=== PATIENT | female | born 1990 | race Caucasian/White ===

== ENCOUNTER 2017-06-06 19:13 | Emergency (ER) | payer OTHER ==
[~2017-06-06 19:13] MED LIST: ISOVUE-370 76%-LOCM 1 ML ONE
[2017-06-06 19:57] LABS: #Eosinphils 0.1 thou/uL (0.0-0.7); #Lymphocytes 2.3 thou/uL (1.20-3.40); #Monocytes 0.6 thou/uL (0.11-0.59); #Neutrophils 6.2 thou/uL (1.40-6.50); %Basophils 0.4 % (0.0-1.0); %Eosinophils 1.4 % (0.0-10.0); %Monocytes 6.8 % (0.0-10.0); %Neutrophils 66.4 % (42.0-75.0); Hemoglobin 13.7 g/dL (12.0-16.0); Mean Corpuscular HGB CONC 34.4 g/dL (32.0-36.0); Mean Corpuscular Hemoglobin 32.5 pg (27.0-31.0); Mean Corpuscular Volume 94.4 fl (81.0-99.0); Mean Platelet Volume 7.8 fL (7.4-10.4); Platelet Count 286 thou/uL (130-400); Red Blood Cell (RBC) Count 4.21 mill/uL (4.20-5.40); White Blood Cell (WBC) Count 9.3 thou/uL (4.8-10.8)
[2017-06-06 20:24] LABS: ALT (SGPT) 22 U/L (8-55); AST (SGOT) 21 U/L (5-34); Albumin 4.5 g/dL (3.5-5.0); Alkaline Phosphatase 76 U/L (40-150); Anion Gap 13 mmol/L (10-20); BUN (Urea Nitrogen) 10 mg/dL (7.0-18.7); Bilirubin, Total 0.5 mg/dL (0.2-1.2); Calc. Creatinine Clearance 0 mL/min (70-130); Calcium 9.2 mg/dL (7.8-10.44); Carbon Dioxide 25 mmol/L (22-29); Chloride 104 mmol/L (98-107); Estimated GFR-MDRD 89; Globulin 2.7 g/dL (2.4-3.5); Glucose 100 mg/dL (70-105); Lipase 18 U/L (8-78); Protein, Total 7.2 g/dL (6.0-8.3); Sodium 138 mmol/L (136-145)
[2017-06-06 20:41] LABS: Bilirubin Negative (Negative); Blood, Urine Negative (Negative); Clarity CLEAR (Clear); Glucose, Urine (Dipstick) Negative (Negative); Leukocyte Negative (Negative); Nitrite Negative (Negative); Protein, Urine (Dipstick) Negative (Neg-Trace); Urobilinogen 0.2 mg/dL (0.2-1.0); pH, Urine 7.5 (5.0-9.0)
[2017-06-06 20:42] LABS: BHCG - Serum Negative (NEGATIVE); Pregs Control Background? CLEAR/WHITE (CLR/WHITE); Pregs Control Bar Appear? YES (CONTROL BAR)
--- NOTE | 2017-06-06 22:46 | CT ---
ABDOMEN CT WITH CONTRAST PELVIC CT WITH CONTRAST: Date: 06/06/17 HISTORY: Abdominal pain. Lower abdominal pain. Right lower quadrant pain. COMPARISON: None. TECHNIQUE: Abdomen and pelvis CT are performed with IV contrast. Coronal reformatted images are submitted for in terpretation. FINDINGS: ABDOMEN CT: Lung bases are clear. Heart size is normal. No significant pericardial fluid. Descending thoracic aor ta and abdominal aorta have normal caliber. No periaortic fat stranding. Intra and extrahepatic martha l vein is patent. Gallbladder is unremarkable. Symmetric attenuation of the psoas muscles. Liver, spleen, pancreas, and adrenal glands have appropri ate enhancement. No gastrohepatic, retrocrural, or periportal lymphadenopathy. No mesenteric mass, lymphadenopathy, free air, or free fluid. Symmetric enhancement of the kidneys. B ilaterally, no obstructive uropathy. Limited evaluation of the alimentary canal due to lack of oral contrast. Grossly unremarkable gastric mucosa, duodenum, and multiple normal caliber small bowel loops. Ileocecal junction is normal. Scatt ered fecal material in a nondistended, nondilated colon. Normal caliber appendix. PELVIC CT: Uterus and left adnexal structures are unremarkable. There is a follicle in the right ovary measuring 1.2 cm. Urinary bladder is unremarkable. No pelvic mass, lymphadenopathy, or free air. Trace amount of free fluid in the pelvis. There are no lytic or blastic lesions within the osseous structures. IMPRESSION: 1. Normal caliber appendix. 2. No evidence of bowel obstruction. 3. No evidence of obstructive uropathy. 4. Follicle in right ovary. POS: [facility]
[2017-06-07] MEDS ORDERED: Ketorolac Tromethamine 30 MG/ML VIAL ONE (01:29)
--- NOTE | 2017-06-07 07:19 | ULT ---
PRELIMINARY REPORT/[facility]/EMERGENCY AFTER HOURS PROCEDURE: EXAM: US Pelvis Complete, Transabdominal US Pelvis, Transvaginal US Duplex Arterial/Venous of the Pelvis, Complete CLINICAL HISTORY: 26 years old, female; Pain; Other: Rlq pain TECHNIQUE: Real-time transabdominal and transvaginal pelvic ultrasound (complete) with image documentation. Transvaginal imaging was used for better evaluation of the endometrium and adnexa. Real-time duplex ultrasound scan of the arterial and venous flow of the pelvis with color Doppler doreen w and spectral waveform analysis was also performed for evaluation of pelvic and ovarian blood flow a nd torsion. COMPARISON: No relevant prior studies available. FINDINGS: Uterus/cervix: No acute findings. Normal endometrial stripe thickness. No myometrial mass. Right ovary: Right ovarian follicle measuring 1.4 cm. No acute findings. No mass. Normal blood flow. No evidence of torsion. Left ovary: No acute findings. No mass. Normal blood flow. No evidence of torsion. Free fluid: Mild free fluid. IMPRESSION: No definite acute findings. Mild pelvic fluid. Thank you for allowing us to participate in the care of your patient. Dictated and Authenticated by: Roberto Warren MD 06/07/2017 4:37 AM Central Time ([place] & [place]) FINAL REPORT TRANSVAGINAL PELVIC ULTRASOUND WITH DOPPLER: I agree with the preliminary report given by Dr. Roberto Warren of [facility]. POS: [facility]
[2017-06-07 22:53] LABS: Chlamydia by PCR Not Detected (NotDetected); GC by PCR Not Detected (NotDetected)
== END 2017-06-07 04:41 | disposition home or self-care (01) ==
LOC: ERS 19:13
DX: N83.201 Unspecified ovarian cyst, right side (principal)
CPT/HCPCS: 36415; 74177; 76856; 80053; 81003; 83690; 84703; 85025; 87480; 87491; 87510; 87591; 87660; 96374; J1885